=== PATIENT | male | born 1960 | race Caucasian/White ===

== ENCOUNTER 2023-07-03 06:57 | Emergency (ER) | payer SELFPAY ==
[2023-07-03 07:10] VITALS: BP 110/61; PULSE 74; RESP 20; TEMP 36.2; O2SAT 97; BMI 29.7
--- NOTE | 2023-07-03 07:18 | DI.RAD.S_ITS ---
PROCEDURE: XR CHEST 1V INDICATIONS: chest pain TECHNIQUE: One view of the chest was acquired. COMPARISON: None. FINDINGS: Surgical changes and devices: None. Lungs and pleura: Lungs are clear. No pleural effusions or pneumothorax. Mediastinum: Mediastinal contours appear normal. Heart size is normal. Bones and chest wall: No suspicious bony lesions. Overlying soft tissues appear unremarkable. IMPRESSION: No acute cardiopulmonary abnormality is seen. Dictated by: Jacobo Siddiqi M.D. on 07/03/2023 at 8:00 Approved by: Jacobo Siddiqi M.D. on 07/03/2023 at 8:00
[2023-07-03] MEDS: SODIUM CHLORIDE 0.9% 1,000 ML 1000 ML IV (07:40)
[2023-07-03 07:48] LABS: Add Manual Diff / Slide Review NO; Basophils Absolute Auto 100 /uL (0-100); Basophils Percent Auto 0.9 % (0-2); Eosinophils Absolute Auto 200 /uL (0-450); Hematocrit 55.2 % (41-53); Hemoglobin 18.6 g/dL (13.5-17.5); Lymphocytes Absolute Auto 1200 /uL (1100-4500); Lymphocytes Percent Auto 15.4 % (25-40); Mean Corpuscular HGB Conc 33.8 % (30-36); Mean Corpuscular Hemoglobin 31.5 PG (26-34); Mean Corpuscular Volume 93.3 fL (80-100); Monocytes Absolute Auto 300 /uL (0-900); Monocytes Percent Auto 3.4 % (3-14); Neutrophils Absolute Auto 6100 /uL (1500-7000); Neutrophils Percent Auto 77.3 % (50-75); Platelet Count 263 X10^3/uL (150-400); Red Blood Cell Count 5.91 X10^6/uL (4.5-5.9); Red Cell Distribution Width 13.4 % (11.6-14.8); White Blood Cell Count 7.9 X10^3/uL (4.5-11.0)
[2023-07-03 07:51] LABS: INR 0.9 (0.9-1.3); Prothrombin Time 10.7 SECONDS (9.4-12.5)
[2023-07-03 07:53] LABS: PTT Partial Thromboplastin Tim 26 SECONDS (25.1-36.5)
[2023-07-03 07:57] LABS: Alanine Aminotransferase 21 IU/L (<50); Albumin 4.4 g/dL (3.5-5.0); Albumin Globulin Ratio 1.2 (1.0-2.8); Alkaline Phosphatase 85 U/L (38-126); Aspartate Aminotransferase 33 IU/L (17-59); BUN Creatinine Ratio 26.4 (6-22); Bilirubin Total 0.9 mg/dL (0.2-1.3); Blood Urea Nitrogen 28 mg/dL (9-20); Carbon Dioxide 25 mmol/L (22-32); Chloride 102 mmol/L (98-107); Creatine Kinase 115 U/L (55-170); Estimated Glomerular Filt Rate > 60 mL/min (>60); Globulin 3.6 g/dL (1.7-4.1); Glucose 163 mg/dL (80-110); Lipase 60 U/L (23-300); Magnesium 1.9 mg/dL (1.6-2.3); Sodium 137 mmol/L (137-145)
[2023-07-03 07:59] LABS: HEMOLYSIS 121 (0-50)
[2023-07-03 08:00] LABS: Potassium 4.2 mmol/L (3.4-5.1)
--- NOTE | 2023-07-03 08:03 | ED.GENADULT ---
HPI - General Adult General Chief complaint: Syncope Stated complaint: low blood pressure Time Seen by Provider: 07/03/23 07:21 Source: patient, family, RN notes reviewed and old records reviewed Mode of arrival: Wheelchair Limitations: no limitations History of Present Illness HPI narrative: 62-year-old male with history of asthma and hypertension. Patient states today he was at work at [employer]. Patient started to feel dizzy and sort of lightheaded like he might pass out. He states he did not he sat down it did not resolve. He states he did get sweaty. This did improve but EMS had been contacted. Patient denies any headache, no chest pain, no shortness of breath, denies any nausea or vomiting. No recent diarrhea or constipation. No new urinary issues such as burning or frequency or incontinence. No swelling of extremities. Patient has not had similar symptoms in the past. He notes that his primary care recently changed his medications he has been taking 40 mg daily was started on 10 mg HCTZ about 2 weeks ago and had his dose increased from 10-25 mg last week which he started this last Monday. Patient states and EMS followed behind although patient transported via private auto that his blood pressure was low initially while seated and decreased when he went to standing. Had a systolic in the 80s. Patient states only medications are Advair, lisinopril 40 mg and now HCT stone any 5 mg. States prior surgeries include appendectomy, carpal tunnel, plate below the eye. Chews tobacco but no smoking. Occasional alcohol but nothing recently. No marijuana or other recreational substances. Primary care is Maryjane saenz at [facility]. Patient does have a log of his blood pressures that he has been checking twice daily was initially 170s to 150s before being change states he to 25 mg was running 140s fairly consistently and has been running in the 130s mornings and evenings for the past 4-5 days. Patient did not have anything to eat or drink this morning. He has noted he has been very thirsty lately. He is accompanied by his 2 sons. Review of Systems Review of Systems ROS Unobtainable: All systems reviewed & are unremarkable except as noted in HPI and below Patient History Social History Smoking Status: Never smoker Smoking Status: Never smoker alcohol intake frequency: 0-2 drinks per day Substance Use Type: does not use Exam Narrative Exam Narrative: GENERAL: Alert and oriented x three, well-appearing male in no acute distress. HEENT: Head normocephalic, atraumatic, EOMI, pupils reactive, face symmetric, moist mucous membranes NECK: Supple, full range of motion CARDIOVASCULAR: Regular rate and rhythm without murmurs, rubs or gallops. RESPIRATORY: Breath sounds equal bilaterally, no wheezes rales or rhonchi. ABDOMEN: Soft, nontender. Normoactive bowel sounds all 4 quadrants. No guarding or rebound, rigidity, no mass, no pulsatile mass or bruit : No CVA tenderness EXTREMITIES: Normal range of motion, no clubbing or edema. Neurovascularly intact NEUROLOGICAL: Cranial nerves II through XII grossly intact. Moving all extremities SKIN: Warm, dry, no petechiae, no rashes or lesions. Initial Vital Signs Initial Vital Signs: Vital Signs Temperature 97.2 F L 07/03/23 07:10 Pulse Rate 74 07/03/23 07:10 Respiratory Rate 20 07/03/23 07:10 Blood Pressure 110/61 07/03/23 07:10 Pulse Oximetry 97 07/03/23 07:10 Oxygen Delivery Method Room Air 07/03/23 07:10 Course Orders Ordered: ED Orders 07/03/23 07:18 XR chest 1V Stat EKG-12 Lead Stat 07/03/23 07:33 Complete Blood Count AUTO DIFF Stat Comprehensive Metabolic Panel Stat Lipase Stat Magnesium Stat PTT Partial Thromboplastin [place] Stat Prothrombin Time INR Stat Troponin & CK Cardiac Panel Stat Discontinued Medications Aspirin (Aspirin 81 Mg Chew Tab) 324 mg PO NOW ONE Stop: 07/03/23 07:19 Last Admin: 07/03/23 08:40 Dose: Not Given Documented By: CHRISTY Sodium Chloride (Normal Saline 0.9%) 1,000 mls @ 1,000 mls/hr IV BOLUS ONE Stop: 07/03/23 08:21 Last Infusion: 07/03/23 08:40 Dose: Infused Documented By: Admin: 07/03/23 07:40 Dose: 1,000 mls/hr Documented By: RAJAN Vital Signs Vital signs: Vital Signs - 8 hr 07/03/23 07:10 07/03/23 08:27 07/03/23 08:28 Temperature 97.2 F L Pulse Rate 74 67 67 Respiratory Rate 20 20 17 Blood Pressure 110/61 Pulse Oximetry 97 95 95 Oxygen Delivery Method Room Air Room Air 07/03/23 08:28 07/03/23 08:30 07/03/23 08:30 Temperature Pulse Rate 67 Respiratory Rate 17 Blood Pressure 112/69 118/74 Pulse Oximetry 96 Oxygen Delivery Method Room Air 07/03/23 08:36 07/03/23 08:36 07/03/23 08:42 Temperature Pulse Rate 60 65 Respiratory Rate 16 18 Blood Pressure 161/76 H 161/76 H Pulse Oximetry 98 97 Oxygen Delivery Method Room Air Room Air Medical Decision Making Lab Data 07/03/23 07:33 07/03/23 07:33 Labs: Lab Results 07/03/23 Range/Units 07:33 WBC 7.9 (4.5-11.0) X10^3/uL RBC 5.91 H (4.5-5.9) X10^6/uL Hgb 18.6 H (13.5-17.5) g/dL Hct 55.2 H (41-53) % MCV 93.3 (80-100) fL MCH 31.5 (26-34) PG MCHC 33.8 (30-36) % RDW 13.4 (11.6-14.8) % Plt Count 263 (150-400) X10^3/uL Neut % (Auto) 77.3 H (50-75) % Lymph % (Auto) 15.4 L (25-40) % Clinch % (Auto) 3.4 (3-14) % Eos % (Auto) 3.0 (2-4) % Baso % (Auto) 0.9 (0-2) % Neut # (Auto) 6100 (3735-4609) /uL Lymph # (Auto) 1200 (7054-6434) /uL Clinch # (Auto) 300 (0-900) /uL Eos # (Auto) 200 (0-450) /uL Baso # (Auto) 100 (0-100) /uL PT 10.7 (9.4-12.5) SECONDS INR 0.9 (0.9-1.3) APTT 26 (25.1-36.5) SECONDS Sodium 137 (137-145) mmol/L Potassium 4.2 (3.4-5.1) mmol/L Chloride 102 (98-107) mmol/L Carbon Dioxide 25 (22-32) mmol/L BUN 28 H (9-20) mg/dL Creatinine 1.06 (0.66-1.25) mg/dL Estimated GFR > 60 (>60) mL/min BUN/Creatinine Ratio 26.4 H (6-22) Glucose 163 H (80-110) mg/dL Calcium 9.0 (8.4-10.2) mg/dL Magnesium 1.9 (1.6-2.3) mg/dL Total Bilirubin 0.9 (0.2-1.3) mg/dL AST 33 (17-59) IU/L ALT 21 (<50) IU/L Alkaline Phosphatase 85 (38-126) U/L Total Creatine Kinase 115 (55-170) U/L Troponin I < 0.012 (0.01-0.034) ng/mL Total Protein 8.0 (6.3-8.2) g/dL Albumin 4.4 (3.5-5.0) g/dL Globulin 3.6 (1.7-4.1) g/dL Albumin/Globulin Ratio 1.2 (1.0-2.8) Lipase 60 (23-300) U/L Imaging Data Chest x-ray: Radiologist's Impression: [place] [address] XRay Report Signed Patient: Hao Jones MR#: [id number] : 1960 Acct:[id number] Age/Sex: 62 / M Date of Service: 07/03/23 Loc: ED Accession Number: [id number] Procedure: XR chest 1V Ordering Provider: Amanda Bowman D.O. PROCEDURE: XR CHEST 1V INDICATIONS: chest pain TECHNIQUE: One view of the chest was acquired. COMPARISON: None. FINDINGS: Surgical changes and devices: None. Lungs and pleura: Lungs are clear. No pleural effusions or pneumothorax. Mediastinum: Mediastinal contours appear normal. Heart size is normal. Bones and chest wall: No suspicious bony lesions. Overlying soft tissues appear unremarkable. IMPRESSION: No acute cardiopulmonary abnormality is seen. Dictated by: Jacobo Siddiqi M.D. on 07/03/2023 at 8:00 Approved by: Jacobo Siddiqi M.D. on 07/03/2023 at 8:00 ECG Data Attestation: I personally reviewed and interpreted this ECG as follows: Prior ECG tracings: not available for review Interpretation: Sinus rhythm rate of 73 TN 156 QRS 84 QTC of 423. No acute ST elevation depression noted. Patient does have Q-waves in 3 and AVF. Patient does not have priors for comparison. MDM Narrative Medical decision making narrative: 62-year-old male who had likely orthostatic hypotension while at work this morning. Had not eaten or drank anything. Recently had his blood pressure medication increased in the past for 5 days. Was taking lisinopril 40 mg proximally 2 weeks ago had HCT 10 mg added on and then increase to 25 mg last Monday. Patient symptoms started while standing he was moving and sliding 2 boxes. Did not resolve when he seated. Has since resolved. Patient's labs show hemoglobin 18.6 with a crit of 55, patient is not familiar with having any elevated hemoglobin in the past but does follow up with primary care. Normal white count at 7.9 platelets 263. Negative coags. BUN is elevated at 28, creatinine is 1.06. Sodium is 137 with a potassium of 4.2 glucose is 163. Negative LFTs, negative troponin. Chest x-ray is negative. EKG shows sinus rhythm, does have Q-wave in 3 and AVF. No priors for comparison. Patient has not had any chest pain, pressure other concerning symptoms for ACS. Blood pressures been appropriate here. He has receiving a 1L of fluids. Patient's suspect his blood pressure got a little too low this morning secondary to his new medications. I suspect this is contributing along with no food or drink this morning he is probably little bit dehydrated. Patient ambulated in the department without any issue and feels much better. Patient's blood pressures at home have been in the 130 since starting his medications recommended that he continue to hydrate regularly and see if this improves. Continue to monitor his blood pressure regularly and if having lows or persistent symptoms talk with his physician about decreasing his medication. Discharge Plan Departure Patient Disposition: Home Clinical Impression: Dehydration, Light-headedness Activity Restrictions/Additional Instructions: Follow-up with your physician for recheck. I suspect you develop some orthostatic hypotension and were a little dehydrated today contributing to your symptoms. Your workup showed your hemoglobin is a little bit elevated, please share this information with your physician they can continue to follow this. Your hemoglobin today was 8.6 with a hematocrit of 55. Please continue to take your blood pressure regularly but increase your fluid intake. Talk with your physician if you should continue on your current dosage or decrease it. If your systolic blood pressure is running below 110 or 100 or you are having persistent symptoms of lightheadedness please decrease your (HCTZ)hydrochlorothiazide back to 10 mg. Please return for new or worsening symptoms, recurrent lightheadedness or passing out, severe headaches, new chest pain, shortness of breath, new swelling in your extremities, persistent sweatiness, nausea or vomiting or other new or concerning changes. Stand Alone Forms: Patient Portal/API
[2023-07-03 08:09] LABS: Troponin I < 0.012 ng/mL (0.01-0.034)
--- NOTE | 2023-07-03 08:10 | PC.NURSE ---
Pt reports at work just moving things around, not performing any strenuous work. He became diaphoretic, lightheaded, and felt faint. Pt did not pass out and has not had similar episodes before. He reports his BP medications being increased last week. Now patient denies any chest pain, dizziness, SOB, or nausea. Pt states Im ready to go home.
[2023-07-03 08:27] VITALS: PULSE 67; RESP 20; O2SAT 95
[2023-07-03 08:28] VITALS: BP 112/69; PULSE 67; RESP 17; O2SAT 95
[2023-07-03 08:30] VITALS: BP 118/74; PULSE 67; RESP 17; O2SAT 96
[2023-07-03 08:36] VITALS: BP 161/76; PULSE 60; RESP 16; O2SAT 98
--- NOTE | 2023-07-03 08:37 | PC.NURSE ---
pt ambulated with a steady gait around the department
[2023-07-03 08:42] VITALS: BP 161/76; PULSE 65; RESP 18; O2SAT 97
== END 2023-07-03 08:56 | disposition home or self-care (01) ==
PROVIDERS: Emergency Provider Emergency Medicine
DX: E86.0 Dehydration (principal); R42 Dizziness and giddiness; R07.9 Chest pain, unspecified
CPT/HCPCS: 36415; 71045; 80053; 82550; 83690; 83735; 84484; 85025; 85610; 85730; 93005; 96360; 99284